=== PATIENT | female | born 1960 | race Caucasian/White ===

== ENCOUNTER → 2017-01-23 | Outpatient (CLI) | payer MEDICARE, MEDICAID ==
[~2017-01-23] MED LIST: ACET500C PO; ALBU8.5H3 IH; ALIS300T PO; ALPR0.257 PO; AMLO5TAB2 PO; AZIL80TA PO; BISA10SU54 PR; CELE200C PO; CLON0.3T47 PO; COMBIVENT INH; CYCL-259 PO; FLUT1DIS5 IH; GADOBUTROL 7.5 MMOL/7.5 ML VIAL ONE; IPRA4AER IH; IPRA4AER INH; LABE200T3 PO; LISI40TA PO; METF500T4 PO; METH500T7 PO; OMEP40CA6 PO; OXYC-229 PO; POLY17PO5 PO; POTA20PA PO; SERT50TA PO; SUCR1TAB PO; VENL150C6 PO
== END | disposition home or self-care (01) ==
LOC: CFH 13:11
PROVIDERS: ATTEND Psychiatry & Neurology Neurology
DX: G93.2 Benign intracranial hypertension (principal); R90.82 White matter disease, unspecified
CPT/HCPCS: 70553; 82565; A9585

== ENCOUNTER 2017-07-23 03:56 | Inpatient (IN) | payer MEDICAID, MEDICARE ==
[~2017-07-23] VITALS: Ht 157.5 cm; Wt 82.7 kg
[~2017-07-23 03:56] MED LIST changes: -ALBU8.5H3 IH; +ALBU8.5H8 IH; +ALPR0.25 PO; -GADOBUTROL 7.5 MMOL/7.5 ML VIAL ONE; +LORA10TA62 PO; +METH750T2 PO; -OXYC-229 PO; +OXYC-307 PO; +POTA20TA89 PO; +PROM12.56 PR; +SIME125T39 PO
[2017-07-23] MEDS ORDERED: SODIUM CHLORIDE FLUSH 10ML SYR IVF ONE (04:30)
[2017-07-23 04:33] LABS: HEMATOCRIT 42.3 % (34.6-47.8); HEMOGLOBIN 14.7 g/dL (11.7-16.4); WHITE BLOOD COUNT 5.1 x10^3/uL (3.4-10)
[2017-07-23 04:37] LABS: BLOOD UREA NITROGEN 11 mg/dL (7-18)
[2017-07-23 04:42] LABS: ASPARTATE AMINO TRANSFERASE 21 U/L (15-37)
[2017-07-23 04:50] LABS: ACETAMINOPHEN < 2 mcg/mL (10-30); IS PT STATUS REG ER OR PRE ER? YES
[2017-07-23] MEDS ORDERED: POTASSIUM CHLORIDE 20 MEQ TAB.ER.PRT ONE (04:52)
[2017-07-23] MEDS ORDERED: SODIUM CHLORIDE 0.9% 1,000ML IVBOLUS ONE (05:00)
[2017-07-23] MEDS ORDERED: POTASSIUM CHLORIDE 20 MEQ TAB.ER.PRT PO ONE (05:00)
[2017-07-23] MEDS ORDERED: ASPIRIN 325 MG TABLET PO ONE (05:00)
[2017-07-23] MEDS ORDERED: ASPIRIN 325 MG TABLET ONE (05:01)
[2017-07-23] MEDS ORDERED: FLUT1AER INH (05:07)
[2017-07-23] MEDS ORDERED: SODIUM CHLORIDE FLUSH 10ML SYR IVF PRN (07:00)
[2017-07-23] MEDS ORDERED: ACETAMINOPHEN 325 MG TABLET PO PRN (08:30)
[2017-07-23] MEDS ORDERED: POLYETHYLENE GLYCOL 17 GM PACKET PO PRN (08:30)
[2017-07-23] MEDS ORDERED: NITROGLYCERIN 0.4 MG BOTTLE (25 TABS) SL PRN (08:30)
[2017-07-23] MEDS ORDERED: ENALAPRILAT 1.25 MG/ML, 2ML IVPush PRN (08:30)
[2017-07-23] MEDS ORDERED: hydrALAzine 20 MG/ML, 1ML IVPush PRN (08:30)
[2017-07-23] MEDS: FLUTICASONE/VILANTEROL 100-25MCG/INH INH SCH (09:00)
[2017-07-23 10:10] LABS: IS PT STATUS REG ER OR PRE ER? YES
[2017-07-23] MEDS ORDERED: OXYcodone/APAP 10/325MG TABLET ONE (10:31)
[2017-07-23] MEDS: OXYcodone/APAP 10/325MG TABLET PO PRN ×3 (10:37→21:19)
[2017-07-23] MEDS ORDERED: ONDANSETRON 2MG/ML, 2ML ONE (10:42)
[2017-07-23] MEDS: ONDANSETRON 2MG/ML, 2ML IVPush PRN ×2 (10:45→21:19)
[2017-07-23] MEDS: METHOCARBAMOL 750 MG TABLET PO SCH ×3 (11:00→21:12)
[2017-07-23 12:00] VITALS: BP 167/93
[2017-07-23] MEDS: AcetaZOLAMIDE ER 500 MG CAPSULE PO SCH (15:10)
[2017-07-23] MEDS: LORATADINE 10 MG TABLET PO SCH (15:11)
[2017-07-23] MEDS: POTASSIUM CHLORIDE 20 MEQ TAB.ER.PRT PO SCH ×2 (15:11→21:12)
[2017-07-23] MEDS: AMLODIPINE 5 MG TABLET PO SCH ×2 (15:11→21:12)
[2017-07-23] MEDS: LABETALOL 200 MG TABLET PO SCH ×2 (15:12→21:12)
[2017-07-23] MEDS: SIMETHICONE 125 MG CHEW TAB PO SCH ×2 (15:13→21:00)
[2017-07-23] MEDS: SENNA/DOCUSATE TABLET PO SCH (15:13)
[2017-07-23] MEDS: PLEASE ENTER HEIGHT AND WEIGHT MC SCH ×2 (15:13→19:45)
[2017-07-23] MEDS: SODIUM CHLORIDE 0.9% 1,000 ML IV SCH (15:15)
[2017-07-23] MEDS: LISINOPRIL 20 MG TABLET PO SCH (15:17)
[2017-07-23] MEDS: ENOXAPARIN 40 MG/0.4 ML SQ SCH (15:17)
[2017-07-23] MEDS: PROMETHAZINE 12.5 MG SUPP PR SCH ×2 (15:18→21:00)
[2017-07-23 15:22] LABS: IS PT STATUS REG ER OR PRE ER? NO
[2017-07-23] MEDS: NICOTINE 7 MG/24 HR PATCH.TD24 TD SCH (16:00)
[2017-07-23] MEDS ORDERED: ALBUTEROL/IPRATROPIUM 2.5MG/0.5MG, 3 ML ONE (16:31)
[2017-07-23] MEDS: ALBUTEROL/IPRATROPIUM 2.5MG/0.5MG, 3 ML NPPB SCH (18:44)
[2017-07-23 20:04] VITALS: BP 159/82
[2017-07-23 21:07] VITALS: BP 153/72
[2017-07-24 00:36] VITALS: BP 110/63
[2017-07-24] MEDS: PLEASE ENTER HEIGHT AND WEIGHT MC SCH (04:00)
[2017-07-24] MEDS: SODIUM CHLORIDE 0.9% 1,000 ML IV SCH (04:40)
[2017-07-24] MEDS: METHOCARBAMOL 750 MG TABLET PO SCH ×4 (05:32→21:33)
[2017-07-24] MEDS: ONDANSETRON 2MG/ML, 2ML IVPush PRN (05:32)
[2017-07-24] MEDS: PROMETHAZINE 12.5 MG SUPP PR SCH (05:32)
[2017-07-24] MEDS: ASPIRIN 325 MG TABLET EC PO SCH (05:32)
[2017-07-24] MEDS: OXYcodone/APAP 10/325MG TABLET PO PRN ×4 (05:32→23:54)
[2017-07-24 05:45] LABS: HEMATOCRIT 37.6 % (34.6-47.8); HEMOGLOBIN 13.1 g/dL (11.7-16.4); WHITE BLOOD COUNT 4.2 x10^3/uL (3.4-10)
[2017-07-24 05:58] LABS: BLOOD UREA NITROGEN 15 mg/dL (7-18)
[2017-07-24 06:10] LABS: ASPARTATE AMINO TRANSFERASE 17 U/L (15-37)
[2017-07-24 07:44] VITALS: BP 117/66
[2017-07-24] MEDS ORDERED: PROMETHAZINE 12.5 MG SUPP PR PRN (08:00)
[2017-07-24] MEDS: LISINOPRIL 20 MG TABLET PO SCH (10:44)
[2017-07-24] MEDS: AcetaZOLAMIDE ER 500 MG CAPSULE PO SCH (10:44)
[2017-07-24] MEDS: LORATADINE 10 MG TABLET PO SCH (10:45)
[2017-07-24] MEDS: LABETALOL 200 MG TABLET PO SCH ×2 (10:45→21:33)
[2017-07-24] MEDS: SIMETHICONE 125 MG CHEW TAB PO SCH ×2 (10:45→21:33)
[2017-07-24] MEDS: SENNA/DOCUSATE TABLET PO SCH (10:45)
[2017-07-24] MEDS: AMLODIPINE 5 MG TABLET PO SCH ×2 (10:45→21:33)
[2017-07-24] MEDS: FLUTICASONE/VILANTEROL 100-25MCG/INH INH SCH (11:36)
[2017-07-24 13:53] VITALS: BP 109/70
[2017-07-24] MEDS: NICOTINE 7 MG/24 HR PATCH.TD24 TD SCH (16:00)
[2017-07-24] MEDS: ENOXAPARIN 40 MG/0.4 ML SQ SCH (17:28)
[2017-07-24] MEDS: POTASSIUM CHLORIDE 20 MEQ TAB.ER.PRT PO SCH (17:28)
[2017-07-24] MEDS: ALBUTEROL/IPRATROPIUM 2.5MG/0.5MG, 3 ML NPPB SCH (20:00)
[2017-07-24 20:09] VITALS: BP 107/69
[2017-07-24] MEDS ORDERED: ATORVASTATIN 40 MG TABLET PO SCH (21:00)
[2017-07-24 21:24] VITALS: BP 137/90
[2017-07-24 22:39] VITALS: BP 123/75
[2017-07-25 01:45] VITALS: BP 121/72
[2017-07-25] MEDS: ONDANSETRON 2MG/ML, 2ML IVPush PRN (02:04)
[2017-07-25] MEDS: ASPIRIN 325 MG TABLET EC PO SCH (05:10)
[2017-07-25] MEDS: METHOCARBAMOL 750 MG TABLET PO SCH ×2 (05:10→11:22)
[2017-07-25] MEDS ORDERED: ATOR40TA78 PO (06:59)
[2017-07-25] MEDS ORDERED: ASPI-650 PO (06:59)
[2017-07-25] MEDS: ALBUTEROL/IPRATROPIUM 2.5MG/0.5MG, 3 ML NPPB SCH ×2 (07:20→11:32)
[2017-07-25] MEDS ORDERED: REGADENOSON 0.4 MG/5 ML SYRINGE ONE (08:23)
[2017-07-25] MEDS ORDERED: KETOROLAC 30 MG/1 ML IVPush ONE (09:00)
[2017-07-25] MEDS ORDERED: HYDROmorphone 1 MG/ML, 1ML IVPush ONE (09:00)
[2017-07-25 09:15] VITALS: BP 158/85
[2017-07-25] MEDS ORDERED: LABETALOL 100 MG TABLET PO SCH ×2 (11:00→21:00)
[2017-07-25] MEDS: FLUTICASONE/VILANTEROL 100-25MCG/INH INH SCH (11:16)
[2017-07-25] MEDS: AcetaZOLAMIDE ER 500 MG CAPSULE PO SCH (11:17)
[2017-07-25] MEDS: SIMETHICONE 125 MG CHEW TAB PO SCH (11:18)
[2017-07-25] MEDS: OXYcodone/APAP 10/325MG TABLET PO PRN (11:22)
[2017-07-25] MEDS: AMLODIPINE 5 MG TABLET PO SCH (11:22)
[2017-07-25] MEDS: LORATADINE 10 MG TABLET PO SCH (11:22)
[2017-07-25] MEDS: LISINOPRIL 20 MG TABLET PO SCH (11:23)
[2017-07-25] MEDS: POTASSIUM CHLORIDE 20 MEQ TAB.ER.PRT PO SCH (11:23)
[2017-07-25] MEDS: SENNA/DOCUSATE TABLET PO SCH (11:28)
[2017-07-25 14:14] VITALS: BP 151/82
== END 2017-07-25 15:31 | disposition home or self-care (01) | DRG 69 ==
LOC: ED 05:22 → EDIP 06:48 → 4EST 11:51 → DCLOUNGE 07-25 15:16
PROVIDERS: ADMIT Internal Medicine; ATTEND Hospitalist
PROC: HZ34ZZZ Individual Counseling for Substance Abuse Treatment, Interpersonal (ICD-10-PCS; principal; 2017-07-23)
DX: G45.9 Transient cerebral ischemic attack, unspecified (principal); I11.0 Hypertensive heart disease with heart failure; I50.32 Chronic diastolic (congestive) heart failure; E44.1 Mild protein-calorie malnutrition; I16.1 Hypertensive emergency; E11.9 Type 2 diabetes mellitus without complications; E66.9 Obesity, unspecified; E78.5 Hyperlipidemia, unspecified; E87.6 Hypokalemia; F10.120 Alcohol abuse with intoxication, uncomplicated; F12.90 Cannabis use, unspecified, uncomplicated; F17.210 Nicotine dependence, cigarettes, uncomplicated; F41.9 Anxiety disorder, unspecified; G47.30 Sleep apnea, unspecified; G89.29 Other chronic pain; M06.9 Rheumatoid arthritis, unspecified; Z68.33 Body mass index [BMI] 33.0-33.9, adult; I25.10 Atherosclerotic heart disease of native coronary artery without angina pectoris; J44.9 Chronic obstructive pulmonary disease, unspecified; K21.9 Gastro-esophageal reflux disease without esophagitis; M48.061 Spinal stenosis, lumbar region without neurogenic claudication; M51.36 Other intervertebral disc degeneration, lumbar region; Z79.4 Long term (current) use of insulin; Z79.82 Long term (current) use of aspirin; Z86.73 Personal history of transient ischemic attack (TIA), and cerebral infarction without residual deficits; Z98.84 Bariatric surgery status; Z88.8 Allergy status to other drugs, medicaments and biological substances; Z91.041 Radiographic dye allergy status; Z71.6 Tobacco abuse counseling; Z71.41 Alcohol abuse counseling and surveillance of alcoholic
CPT/HCPCS: 36415; 70450; 70544; 70547; 70551; 71010; 72148; 78452; 80053; 80061; 80307; 80329; 82962; 84443; 84484; 85025; 85610; 85730; 93005; 93017; 93306; 94640; 96360; 96361; J1170; J1650; J1885; J2405; J2785; J7620; 92523-GN; A9502; C9898; G0479; G0480; J7030

== ENCOUNTER 2017-09-13 03:43 | Inpatient (IN) | payer MEDICARE, MEDICAID ==
[~2017-09-13] VITALS: Ht 157.5 cm; Wt 89.6 kg
[~2017-09-13 03:43] MED LIST changes: +ASPI-650 PO; +ATOR40TA78 PO; +FLUT1AER INH
[2017-09-13 04:24] LABS: BASOPHILS # (AUTO) 0.04 x10^3/uL (0-0.1); BASOPHILS % (AUTO) 1 % (0-1); EOSINOPHILS # (AUTO) 0.22 x10^3/uL (0-0.4); EOSINOPHILS % (AUTO) 4 % (1-7); LYMPHOCYTES # (AUTO) 1.55 x10^3/uL (1-3.4); LYMPHOCYTES % (AUTO) 31 % (22-44); MD NO; MEAN CORPUSCULAR HEMOGLOBIN 30.6 pg (27.0-34.8); MEAN CORPUSCULAR HGB CONC 33.8 g/dL (32.4-35.8); MEAN CORPUSCULAR VOLUME 90.4 fL (80-100); MONOCYTES # (AUTO) 0.53 x10^3/uL (0.2-0.8); MONOCYTES % (AUTO) 11 % (2-9); NEUTROPHILS # (AUTO) 2.62 x10^3/uL (1.8-6.8); NEUTROPHILS % (AUTO) 53 % (42-75); PLATELET COUNT 182 x10^3/uL (130-400); RED BLOOD COUNT 4.31 x10^6/uL (3.82-5.3); RED CELL DISTRIBUTION WIDTH 14.1 % (9.6-15.2)
[2017-09-13 04:27] LABS: ALBUMIN 3.5 g/dL (3.4-5.0); ANION GAP 10 mmol/L (5-15); CALCIUM 7.8 mg/dL (8.5-10.1); CHLORIDE 111 mmol/L (98-107); CREATININE 0.72 mg/dL (0.55-1.02)
[2017-09-13 04:45] LABS: TROPONIN I 0.124 ng/mL (0.000-0.045)
[2017-09-13] MEDS ORDERED: SODIUM CHLORIDE 0.9% 1,000 ML IV ONE (04:46)
[2017-09-13] MEDS ORDERED: MORPHINE SULFATE 4 MG/ML, 1ML IVPush PRN (05:00)
[2017-09-13] MEDS ORDERED: ONDANSETRON 2MG/ML, 2ML IVPush ONE (05:00)
[2017-09-13] MEDS ORDERED: ACETAMINOPHEN 325 MG TABLET PO PRN ×2 (05:00→14:30)
[2017-09-13] MEDS ORDERED: ASPIRIN 81 MG TABLET CHEW PO ONE (05:00)
[2017-09-13] MEDS ORDERED: SODIUM CHLORIDE FLUSH 10ML SYR IVF ONE (05:00)
[2017-09-13] MEDS ORDERED: DOCUSATE 100 MG CAPSULE PO PRN (05:00)
[2017-09-13] MEDS ORDERED: POTASSIUM CHLORIDE 20 MEQ TAB.ER.PRT PO ONE ×2 (05:00→12:00)
[2017-09-13] MEDS ORDERED: ONDANSETRON 2MG/ML, 2ML IVPush PRN ×2 (05:00→14:30)
[2017-09-13] MEDS ORDERED: TEMAZEPAM 15 MG CAPSULE PO PRN (05:00)
[2017-09-13] MEDS ORDERED: THIAMINE 100MG TABLET PO ONE (05:00)
[2017-09-13] MEDS ORDERED: THIAMINE 100MG TABLET ONE (05:30)
[2017-09-13] MEDS ORDERED: METHOCARBAMOL 750 MG TABLET ONE (05:30)
[2017-09-13] MEDS ORDERED: POTASSIUM CHLORIDE 20 MEQ TAB.ER.PRT ONE (05:31)
[2017-09-13] MEDS ORDERED: ASPIRIN 81 MG TABLET CHEW ONE (05:31)
[2017-09-13] MEDS ORDERED: ENOXAPARIN 40 MG/0.4 ML ONE (05:31)
[2017-09-13] MEDS ORDERED: ONDANSETRON 2MG/ML, 2ML ONE (05:31)
[2017-09-13] MEDS: ENOXAPARIN 40 MG/0.4 ML SQ SCH (05:40)
[2017-09-13] MEDS: METHOCARBAMOL 750 MG TABLET PO SCH ×4 (05:40→21:34)
[2017-09-13] MEDS: ASPIRIN 325 MG TABLET EC PO SCH (05:50)
[2017-09-13] MEDS ORDERED: NITROGLYCERIN SINGLE TAB 0.4 MG SL ONE ×2 (06:59→09:00)
[2017-09-13] MEDS: NITROGLYCERIN SINGLE TAB 0.4 MG SL PRN ×2 (07:00→09:09)
[2017-09-13 08:44] LABS: TROPONIN I 0.139 ng/mL (0.000-0.045)
[2017-09-13] MEDS ORDERED: LABETALOL 200 MG TABLET PO SCH (09:00)
[2017-09-13] MEDS: LISINOPRIL 20 MG TABLET PO SCH (09:11)
[2017-09-13] MEDS: AMLODIPINE 5 MG TABLET PO SCH ×2 (09:11→21:33)
[2017-09-13] MEDS: SIMETHICONE 125 MG CHEW TAB PO SCH ×2 (09:12→23:27)
[2017-09-13] MEDS: POTASSIUM CHLORIDE 20 MEQ TAB.ER.PRT PO SCH ×2 (09:12→21:34)
[2017-09-13] MEDS: AcetaZOLAMIDE ER 500 MG CAPSULE PO SCH (09:13)
[2017-09-13] MEDS: SODIUM CHLORIDE 0.9% 1,000 ML IV SCH ×2 (09:14→21:39)
[2017-09-13 11:36] VITALS: BP 147/85
[2017-09-13] MEDS ORDERED: FLUT1BLS INH (12:19)
[2017-09-13] MEDS ORDERED: IPRA4AER INH (12:19)
[2017-09-13] MEDS ORDERED: LABE200T3 PO (12:19)
[2017-09-13] MEDS ORDERED: ALBU5SOL6 NEB (12:19)
[2017-09-13] MEDS ORDERED: LISI40TA PO (12:19)
[2017-09-13] MEDS ORDERED: AMLO10TA2 PO (12:19)
[2017-09-13] MEDS ORDERED: ALBU90AE INH (12:19)
[2017-09-13 13:09] VITALS: BP 136/83
[2017-09-13] MEDS ORDERED: GABAPENTIN 100 MG CAPSULE ONE (14:27)
[2017-09-13] MEDS ORDERED: OXYcodone IR 5MG TABLET ONE (14:27)
[2017-09-13] MEDS: OXYcodone IR 5MG TABLET PO PRN ×3 (14:29→23:27)
[2017-09-13] MEDS: GABAPENTIN 100 MG CAPSULE PO SCH ×2 (14:29→21:33)
[2017-09-13] MEDS ORDERED: hydrALAzine 20 MG/ML, 1ML IVPush PRN (14:30)
[2017-09-13] MEDS ORDERED: ENALAPRILAT 1.25 MG/ML, 2ML IVPush PRN (14:30)
[2017-09-13] MEDS ORDERED: ALBUTEROL/IPRATROPIUM 2.5MG/0.5MG, 3 ML NPPB SCH ×2 (14:30→16:00)
[2017-09-13] MEDS ORDERED: BISACODYL 10 MG SUPP PR PRN (14:30)
[2017-09-13] MEDS ORDERED: morphine SULFATE 10 MG/ML, 1ML IVPush PRN (14:30)
[2017-09-13] MEDS ORDERED: POLYETHYLENE GLYCOL 17 GM PACKET PO PRN (14:30)
[2017-09-13 15:43] VITALS: BP 130/85
[2017-09-13] MEDS ORDERED: ALBUTEROL SULFATE 2.5 MG/3 ML NPPB PRN (17:00)
[2017-09-13] MEDS: FLUTICASONE/VILANTEROL 200-25MCG/INH INH SCH (18:38)
[2017-09-13 20:01] VITALS: BP 133/89
[2017-09-13] MEDS: ATORVASTATIN 40 MG TABLET PO SCH (21:33)
[2017-09-13] MEDS ORDERED: ALBUTEROL/IPRATROPIUM 2.5MG/0.5MG, 3 ML ONE (21:55)
[2017-09-13] MEDS: ALBUTEROL/IPRATROPIUM 2.5MG/0.5MG, 3 ML NPPB SCH (22:01)
[2017-09-14 01:23] VITALS: BP 128/73
[2017-09-14] MEDS: OXYcodone IR 5MG TABLET PO PRN ×2 (03:35→10:03)
[2017-09-14] MEDS: SODIUM CHLORIDE 0.9% 1,000 ML IV SCH (03:36)
[2017-09-14] MEDS: ENOXAPARIN 40 MG/0.4 ML SQ SCH (05:41)
[2017-09-14] MEDS: GABAPENTIN 100 MG CAPSULE PO SCH (05:41)
[2017-09-14] MEDS: METHOCARBAMOL 750 MG TABLET PO SCH ×4 (05:41→20:39)
[2017-09-14] MEDS: ASPIRIN 325 MG TABLET EC PO SCH (05:41)
[2017-09-14 05:43] LABS: CHLORIDE 111 mmol/L (98-107)
[2017-09-14 05:47] LABS: CALCIUM 7.9 mg/dL (8.5-10.1); CREATININE 1.01 mg/dL (0.55-1.02)
[2017-09-14 06:26] LABS: ANION GAP 6 mmol/L (5-15); MEAN CORPUSCULAR HEMOGLOBIN 30.8 pg (27.0-34.8); MEAN CORPUSCULAR HGB CONC 33.9 g/dL (32.4-35.8); MEAN CORPUSCULAR VOLUME 90.9 fL (80-100); PLATELET COUNT 146 x10^3/uL (130-400)
[2017-09-14 06:28] LABS: BASOPHILS # (AUTO) 0.02 x10^3/uL (0-0.1); BASOPHILS % (AUTO) 0 % (0-1); EOSINOPHILS # (AUTO) 0.22 x10^3/uL (0-0.4); EOSINOPHILS % (AUTO) 4 % (1-7); LYMPHOCYTES # (AUTO) 1.29 x10^3/uL (1-3.4); LYMPHOCYTES % (AUTO) 25 % (22-44); MD SCAN; MONOCYTES # (AUTO) 0.49 x10^3/uL (0.2-0.8); MONOCYTES % (AUTO) 9 % (2-9); NEUTROPHILS # (AUTO) 3.21 x10^3/uL (1.8-6.8); NEUTROPHILS % (AUTO) 61 % (42-75)
[2017-09-14 07:25] VITALS: BP 122/78
[2017-09-14] MEDS ORDERED: MAGNESIUM SULFATE PMX 2GM/50ML 50 ML IV ONE (07:30)
[2017-09-14] MEDS: SIMETHICONE 125 MG CHEW TAB PO SCH ×2 (09:00→20:39)
[2017-09-14] MEDS ORDERED: LISINOPRIL 20 MG TABLET PO SCH (09:00)
[2017-09-14] MEDS: GABAPENTIN 300 MG CAPSULE PO SCH ×3 (10:04→20:39)
[2017-09-14] MEDS: LABETALOL 200 MG TABLET PO SCH (10:04)
[2017-09-14] MEDS: LISINOPRIL 20 MG TABLET PO SCH (10:07)
[2017-09-14] MEDS: AcetaZOLAMIDE ER 500 MG CAPSULE PO SCH (10:08)
[2017-09-14] MEDS: PANTOPRAZOLE 40 MG IV IVPush SCH ×2 (10:08→20:39)
[2017-09-14] MEDS: POTASSIUM CHLORIDE 20 MEQ TAB.ER.PRT PO SCH ×2 (10:09→20:40)
[2017-09-14] MEDS: AMLODIPINE 5 MG TABLET PO SCH (10:09)
[2017-09-14] MEDS: FLUTICASONE/VILANTEROL 200-25MCG/INH INH SCH (10:10)
[2017-09-14] MEDS: SENNA/DOCUSATE TABLET PO SCH (10:12)
[2017-09-14 12:42] LABS: TROPONIN I 0.117 ng/mL (0.000-0.045)
[2017-09-14] MEDS ORDERED: PROMETHAZINE 25 MG/ML, 1ML ONE (13:30)
[2017-09-14] MEDS ORDERED: PROMETHAZINE 25 MG/ML, 1ML IM PRN (13:30)
[2017-09-14 14:30] VITALS: BP 111/71
[2017-09-14 16:59] LABS: TROPONIN I 0.109 ng/mL (0.000-0.045)
[2017-09-14 19:30] VITALS: BP 140/67
[2017-09-14] MEDS: ATORVASTATIN 40 MG TABLET PO SCH (20:39)
[2017-09-15 00:06] LABS: TROPONIN I 0.105 ng/mL (0.000-0.045)
[2017-09-15] MEDS: OXYcodone IR 5MG TABLET PO PRN ×4 (00:56→22:39)
[2017-09-15 02:00] VITALS: BP 136/81
[2017-09-15] MEDS: METHOCARBAMOL 750 MG TABLET PO SCH ×4 (05:56→20:47)
[2017-09-15] MEDS: ENOXAPARIN 40 MG/0.4 ML SQ SCH (05:56)
[2017-09-15] MEDS: ASPIRIN 325 MG TABLET EC PO SCH (05:56)
[2017-09-15 06:30] VITALS: BP 139/75
[2017-09-15] MEDS: SENNA/DOCUSATE TABLET PO SCH (08:12)
[2017-09-15] MEDS: LISINOPRIL 20 MG TABLET PO SCH (08:12)
[2017-09-15] MEDS: GABAPENTIN 300 MG CAPSULE PO SCH ×3 (08:13→20:47)
[2017-09-15] MEDS: POTASSIUM CHLORIDE 20 MEQ TAB.ER.PRT PO SCH ×2 (08:13→20:49)
[2017-09-15] MEDS: AMLODIPINE 5 MG TABLET PO SCH (08:13)
[2017-09-15] MEDS: SIMETHICONE 125 MG CHEW TAB PO SCH (08:13)
[2017-09-15] MEDS: FLUTICASONE/VILANTEROL 200-25MCG/INH INH SCH (08:14)
[2017-09-15] MEDS: PANTOPRAZOLE 40 MG IV IVPush SCH ×2 (08:14→20:47)
[2017-09-15] MEDS: AcetaZOLAMIDE ER 500 MG CAPSULE PO SCH (08:14)
[2017-09-15] MEDS: LABETALOL 200 MG TABLET PO SCH ×2 (08:14→20:45)
[2017-09-15] MEDS: ALBUTEROL/IPRATROPIUM 2.5MG/0.5MG, 3 ML NPPB SCH (09:00)
[2017-09-15] MEDS ORDERED: MAGNESIUM SULFATE PMX 2GM/50ML 50 ML IV ONE (10:30)
[2017-09-15] MEDS ORDERED: POTASSIUM CHLORIDE 20 MEQ TAB.ER.PRT PO ONE (10:30)
[2017-09-15 11:23] LABS: ALANINE AMINOTRANSFERASE 17 U/L (12-78); ALBUMIN 3.2 g/dL (3.4-5.0); ANION GAP 4 mmol/L (5-15); CALCIUM 7.6 mg/dL (8.5-10.1); CHLORIDE 113 mmol/L (98-107)
[2017-09-15 11:26] LABS: ALKALINE PHOSPHATASE 87 U/L (45-117); BILIRUBIN,TOTAL 1.1 mg/dL (0.2-1.0); CREATININE 1.33 mg/dL (0.55-1.02); TOTAL PROTEIN 6.2 g/dL (6.4-8.2)
[2017-09-15 13:18] VITALS: BP 119/71
[2017-09-15 16:34] VITALS: BP 144/78
[2017-09-15 18:01] VITALS: BP 125/76
[2017-09-15 18:44] VITALS: BP 125/69
[2017-09-15] MEDS ORDERED: POTASSIUM CHLORIDE 10 MEQ TABLET.ER ONE (20:31)
[2017-09-15] MEDS: ATORVASTATIN 40 MG TABLET PO SCH (20:46)
[2017-09-16 01:50] VITALS: BP 156/86
[2017-09-16] MEDS: OXYcodone IR 5MG TABLET PO PRN ×3 (02:59→16:25)
[2017-09-16] MEDS: METHOCARBAMOL 750 MG TABLET PO SCH ×3 (05:06→16:24)
[2017-09-16] MEDS: ASPIRIN 325 MG TABLET EC PO SCH (05:06)
[2017-09-16] MEDS: ENOXAPARIN 40 MG/0.4 ML SQ SCH (05:06)
[2017-09-16 05:53] LABS: ALANINE AMINOTRANSFERASE 16 U/L (12-78); ALBUMIN 3.3 g/dL (3.4-5.0); ANION GAP 6 mmol/L (5-15); CHLORIDE 114 mmol/L (98-107); CREATININE 1.02 mg/dL (0.55-1.02)
[2017-09-16 05:55] LABS: ALKALINE PHOSPHATASE 91 U/L (45-117); BILIRUBIN,TOTAL 0.9 mg/dL (0.2-1.0); TOTAL PROTEIN 6.4 g/dL (6.4-8.2)
[2017-09-16 06:11] LABS: BASOPHILS # (AUTO) 0.02 x10^3/uL (0-0.1); BASOPHILS % (AUTO) 0 % (0-1); EOSINOPHILS # (AUTO) 0.15 x10^3/uL (0-0.4); EOSINOPHILS % (AUTO) 3 % (1-7); LYMPHOCYTES # (AUTO) 0.73 x10^3/uL (1-3.4); LYMPHOCYTES % (AUTO) 15 % (22-44); MD SCAN; MEAN CORPUSCULAR HEMOGLOBIN 30.8 pg (27.0-34.8); MEAN CORPUSCULAR VOLUME 90.8 fL (80-100); MEAN PLATELET VOLUME 11.1 fL (7.4-10.4); MONOCYTES # (AUTO) 0.34 x10^3/uL (0.2-0.8); MONOCYTES % (AUTO) 7 % (2-9); NEUTROPHILS # (AUTO) 3.84 x10^3/uL (1.8-6.8); NEUTROPHILS % (AUTO) 76 % (42-75); PLATELET COUNT 162 x10^3/uL (130-400); RED BLOOD COUNT 3.71 x10^6/uL (3.82-5.3); RED CELL DISTRIBUTION WIDTH 14.7 % (9.6-15.2)
[2017-09-16] MEDS: ALBUTEROL/IPRATROPIUM 2.5MG/0.5MG, 3 ML NPPB SCH (06:40)
[2017-09-16 07:11] VITALS: BP 136/80
[2017-09-16] MEDS: GABAPENTIN 300 MG CAPSULE PO SCH ×2 (08:40→16:24)
[2017-09-16] MEDS: AcetaZOLAMIDE ER 500 MG CAPSULE PO SCH (08:40)
[2017-09-16] MEDS: AMLODIPINE 5 MG TABLET PO SCH (08:40)
[2017-09-16] MEDS: PANTOPRAZOLE 40 MG IV IVPush SCH (08:40)
[2017-09-16] MEDS: LABETALOL 200 MG TABLET PO SCH (08:41)
[2017-09-16] MEDS: POTASSIUM CHLORIDE 20 MEQ TAB.ER.PRT PO SCH (08:41)
[2017-09-16] MEDS: LISINOPRIL 20 MG TABLET PO SCH (08:45)
[2017-09-16] MEDS: FLUTICASONE/VILANTEROL 200-25MCG/INH INH SCH (08:45)
[2017-09-16] MEDS: SENNA/DOCUSATE TABLET PO SCH (08:47)
[2017-09-16] MEDS ORDERED: LORazepam 2 MG/ML, 1ML IVPush ONE (11:00)
[2017-09-16] MEDS ORDERED: LABE200T3 PO (15:58)
[2017-09-16] MEDS ORDERED: GABA300C10 PO (15:58)
[2017-09-16] MEDS ORDERED: OMEP-110 PO (15:58)
[2017-09-16] MEDS ORDERED: SENN1TAB7 PO (15:58)
[2017-09-16] MEDS ORDERED: ALBU2.5V NPPB (15:58)
[2017-09-16] MEDS ORDERED: IPRA4AER INH (16:07)
== END 2017-09-16 18:01 | disposition home or self-care (01) | DRG 392 ==
LOC: ED 03:53 → EDIP 04:48 → SUATTDRO 04:54 → 5SO 11:31 → 4EST 09-15 17:41 → 5SO 09-15 17:48 → 4EST 09-15 17:55
PROVIDERS: ADMIT Internal Medicine; ATTEND Internal Medicine
DX: K29.70 Gastritis, unspecified, without bleeding (principal); N17.9 Acute kidney failure, unspecified; I11.0 Hypertensive heart disease with heart failure; I50.9 Heart failure, unspecified; E11.9 Type 2 diabetes mellitus without complications; F10.10 Alcohol abuse, uncomplicated; F32.9 Major depressive disorder, single episode, unspecified; G89.29 Other chronic pain; M19.90 Unspecified osteoarthritis, unspecified site; M48.061 Spinal stenosis, lumbar region without neurogenic claudication; E87.6 Hypokalemia; J44.9 Chronic obstructive pulmonary disease, unspecified; Z79.82 Long term (current) use of aspirin; Z86.73 Personal history of transient ischemic attack (TIA), and cerebral infarction without residual deficits; Z87.891 Personal history of nicotine dependence; Z88.8 Allergy status to other drugs, medicaments and biological substances; Z91.041 Radiographic dye allergy status; Z95.5 Presence of coronary angioplasty implant and graft; Z98.2 Presence of cerebrospinal fluid drainage device; I25.2 Old myocardial infarction; M06.9 Rheumatoid arthritis, unspecified; G93.2 Benign intracranial hypertension
CPT/HCPCS: 36415; 71045; 71250; 74181; 76700; 78582; 80048; 80053; 80307; 82040; 83735; 84100; 84484; 85025; 93005; 94640; 96374; J1650; J2405; J2550; J7620; A9540; A9558; C9113; C9898; J2060; J3475; J7030

== ENCOUNTER → 2017-10-29 | Outpatient (CLI) | payer MEDICARE, MEDICAID ==
[~2017-10-29] MED LIST changes: +ALBU2.5V NPPB; +ALBU5SOL6 NEB; +ALBU90AE INH; +AMLO10TA2 PO; +ATOR40TA PO; +ESOM20TA PO; +FLUT1BLS INH; +GABA300C10 PO; +LORA10TA75 PO; +METH750T87 PO; +OMEP-110 PO; +SENN1TAB7 PO; +SIMETHICONE PO; +TIOT18CA INH; +VENL150T PO
[2017-10-29 11:23] LABS: CHOL/HDL RATIO 1.7; LDL/HDL RATIO 0.5 (0.5-3.0)
[2017-10-29 12:21] LABS: HEMOGLOBIN A1C 6.2 % (4.2-6.3)
== END ==
LOC: LAB 10:55
PROVIDERS: ATTEND Genetic Counselor, MS
DX: E11.9 Type 2 diabetes mellitus without complications (principal); E78.5 Hyperlipidemia, unspecified
CPT/HCPCS: 36415; 80061; 83036

== ENCOUNTER → 2017-10-29 | Outpatient (CLI) | payer MEDICARE, MEDICAID ==
[2017-10-29 11:06] LABS: BASOPHILS # (AUTO) 0.03 x10^3/uL (0-0.1); BASOPHILS % (AUTO) 1 % (0-1); EOSINOPHILS # (AUTO) 0.19 x10^3/uL (0-0.4); EOSINOPHILS % (AUTO) 5 % (1-7); LYMPHOCYTES # (AUTO) 1.04 x10^3/uL (1-3.4); LYMPHOCYTES % (AUTO) 29 % (22-44); MD NO; MEAN CORPUSCULAR HEMOGLOBIN 30.7 pg (27.0-34.8); MEAN CORPUSCULAR HGB CONC 34.2 g/dL (32.4-35.8); MEAN CORPUSCULAR VOLUME 89.8 fL (80-100); MEAN PLATELET VOLUME 10.3 fL (7.4-10.4); MONOCYTES # (AUTO) 0.41 x10^3/uL (0.2-0.8); MONOCYTES % (AUTO) 12 % (2-9); NEUTROPHILS % (AUTO) 53 % (42-75); PLATELET COUNT 186 x10^3/uL (130-400); RED BLOOD COUNT 4.42 x10^6/uL (3.82-5.3); RED CELL DISTRIBUTION WIDTH 14.3 % (9.6-15.2)
[2017-10-29 11:16] LABS: INTERNATIONAL NORMALIZED RATIO 1.01 (0.93-1.1); PROTHROMBIN TIME 10.5 Seconds (9.6-11.5)
[2017-10-29 11:18] LABS: ALANINE AMINOTRANSFERASE 22 U/L (12-78); ALBUMIN 3.9 g/dL (3.4-5.0); ANION GAP 8 mmol/L (5-15); CALCIUM 8.2 mg/dL (8.5-10.1); CHLORIDE 106 mmol/L (98-107); CREATININE 0.97 mg/dL (0.55-1.02)
[2017-10-29 11:21] LABS: ALKALINE PHOSPHATASE 87 U/L (45-117); BILIRUBIN,TOTAL 1.6 mg/dL (0.2-1.0)
== END | disposition home or self-care (01) ==
LOC: STAR 09:36
PROVIDERS: ATTEND Neurological Surgery
DX: Z01.818 Encounter for other preprocedural examination (principal); M48.062 Spinal stenosis, lumbar region with neurogenic claudication; I21.9 Acute myocardial infarction, unspecified
CPT/HCPCS: 36415; 80053; 85025; 85610; 85730; 93005

== ENCOUNTER 2017-11-10 23:17 | Inpatient (IN) | payer MEDICARE, MEDICAID ==
[~2017-11-10] VITALS: Ht 157.5 cm; Wt 92.0 kg
[~2017-11-10 23:17] MED LIST changes: +OXYC-302 PO
[2017-11-10] MEDS ORDERED: METOCLOPRAMIDE 5 MG/ML, 2ML ONE (23:47)
[2017-11-10] MEDS ORDERED: DIPHENHYDRAMINE 50 MG/ML, 1ML ONE (23:47)
[2017-11-10] MEDS ORDERED: PROCHLORPERAZINE 5 MG/ML, 2ML ONE (23:47)
[2017-11-10] MEDS ORDERED: SODIUM CHLORIDE 0.9% 1,000 ML IV ONE (23:53)
[2017-11-11] VITALS (7 sets, daily range): BP systolic 113–189; BP diastolic 67–111
[2017-11-11] MEDS ORDERED: PROCHLORPERAZINE 5 MG/ML, 2ML IVPush ONE
[2017-11-11] MEDS ORDERED: DIPHENHYDRAMINE 50 MG/ML, 1ML IVPush ONE
[2017-11-11] MEDS ORDERED: METOCLOPRAMIDE 5 MG/ML, 2ML IVPush ONE
[2017-11-11] MEDS ORDERED: SODIUM CHLORIDE FLUSH 10ML SYR IVF ONE ×2
[2017-11-11 00:18] LABS: BASOPHILS # (AUTO) 0.02 x10^3/uL (0-0.1); BASOPHILS % (AUTO) 0 % (0-1); EOSINOPHILS # (AUTO) 0.11 x10^3/uL (0-0.4); EOSINOPHILS % (AUTO) 2 % (1-7); LYMPHOCYTES # (AUTO) 0.46 x10^3/uL (1-3.4); LYMPHOCYTES % (AUTO) 6 % (22-44); MD NO; MEAN CORPUSCULAR HEMOGLOBIN 30.8 pg (27.0-34.8); MEAN CORPUSCULAR HGB CONC 33.9 g/dL (32.4-35.8); MEAN CORPUSCULAR VOLUME 90.8 fL (80-100); MONOCYTES # (AUTO) 0.25 x10^3/uL (0.2-0.8); MONOCYTES % (AUTO) 3 % (2-9); NEUTROPHILS # (AUTO) 6.77 x10^3/uL (1.8-6.8); NEUTROPHILS % (AUTO) 89 % (42-75); PLATELET COUNT 184 x10^3/uL (130-400); RED BLOOD COUNT 3.25 x10^6/uL (3.82-5.3); RED CELL DISTRIBUTION WIDTH 13.7 % (9.6-15.2)
[2017-11-11 00:24] LABS: ALBUMIN 3.4 g/dL (3.4-5.0); ANION GAP 9 mmol/L (5-15); CALCIUM 8.7 mg/dL (8.5-10.1); CHLORIDE 105 mmol/L (98-107); CREATININE 0.74 mg/dL (0.55-1.02)
[2017-11-11] MEDS ORDERED: AZITHROMYCIN 500 MG in SODIUM CHLORIDE 0.9% 250 ML IVPB ONE (01:30)
[2017-11-11] MEDS ORDERED: morphine SULFATE 10 MG/ML, 1ML IVPush PRN (01:30)
[2017-11-11] MEDS ORDERED: ENALAPRILAT 1.25 MG/ML, 2ML IVPush PRN (01:30)
[2017-11-11] MEDS ORDERED: CEFTRIAXONE PMX 1GM/50ML 50 ML IVPB ONE (01:30)
[2017-11-11] MEDS ORDERED: BISACODYL 10 MG SUPP PR PRN (01:30)
[2017-11-11] MEDS ORDERED: SODIUM CHLORIDE FLUSH 10ML SYR IVF PRN (01:30)
[2017-11-11 02:00] LABS: FREE T4 (FREE THYROXINE) 1.21 ng/dL (0.76-1.46); THYROID STIMULATING HORMONE 1.13 mIU/L (0.358-3.740)
[2017-11-11] MEDS ORDERED: POTASSIUM CHLORIDE 20 MEQ TAB.ER.PRT PO ONE (02:00)
[2017-11-11] MEDS ORDERED: TEMPLATE NON-FORMULARY MED. (Albuterol Sulfate (Proair Respiclick) 2 PUFF(S)) INH PRN (02:00)
[2017-11-11] MEDS ORDERED: PROMETHAZINE 12.5 MG SUPP PR PRN (02:00)
[2017-11-11] MEDS ORDERED: OXYcodone/APAP 5/325MG TABLET PO PRN (02:00)
[2017-11-11] MEDS ORDERED: CEFTRIAXONE PMX 1GM/50ML 50 ML ONE (02:05)
[2017-11-11] MEDS: SODIUM CHLORIDE 0.9% 1,000 ML IV SCH ×3 (02:09→22:28)
[2017-11-11] MEDS: CEFTRIAXONE PMX 2GM/50ML 50 ML IV SCH (02:10)
[2017-11-11] MEDS: GABAPENTIN 300 MG CAPSULE PO SCH ×4 (02:48→20:31)
[2017-11-11] MEDS: METHOCARBAMOL 750 MG TABLET PO SCH ×6 (02:48→22:28)
[2017-11-11] MEDS: hydrALAzine 20 MG/ML, 1ML IVPush PRN ×2 (02:48→07:16)
[2017-11-11] MEDS: DOXYCYCLINE 100MG TABLET PO SCH ×3 (02:48→20:31)
[2017-11-11 03:27] LABS: CULTURE INDICATED? YES; MICROSCOPIC INDICATED
[2017-11-11] MEDS: ACETAMINOPHEN 325 MG TABLET PO PRN ×2 (07:16→14:21)
[2017-11-11] MEDS: OXYcodone IR 5MG TABLET PO PRN ×4 (07:27→20:33)
[2017-11-11] MEDS: OMEPRAZOLE 20 MG CAPSULE.DR PO SCH ×2 (07:43→20:31)
[2017-11-11] MEDS: LORATADINE 10 MG TABLET PO SCH (07:43)
[2017-11-11] MEDS: AMLODIPINE 5 MG TABLET PO SCH (07:43)
[2017-11-11] MEDS: VENLAFAXINE 75 MG CAP ER PO SCH (07:43)
[2017-11-11] MEDS: SENNA/DOCUSATE TABLET PO SCH ×2 (07:44→09:37)
[2017-11-11] MEDS: LISINOPRIL 20 MG TABLET PO SCH (07:44)
[2017-11-11] MEDS: ONDANSETRON 2MG/ML, 2ML IVPush PRN (07:53)
[2017-11-11] MEDS ORDERED: OMEPRAZOLE 20 MG CAPSULE.DR PO SCH (09:00)
[2017-11-11] MEDS ORDERED: IPRATROPIUM 0.5 MG/2.5 ML INHA HHN SCH (09:00)
[2017-11-11] MEDS: ALBUTEROL/IPRATROPIUM 2.5MG/0.5MG, 3 ML NPPB SCH ×3 (09:30→20:57)
[2017-11-11] MEDS: LABETALOL 200 MG TABLET PO SCH (09:37)
[2017-11-11] MEDS: SUCRALFATE 1 GM TABLET PO SCH ×2 (10:30→20:30)
[2017-11-11] MEDS: FLUTICASONE/VILANTEROL 200-25MCG/INH INH SCH (10:30)
[2017-11-11] MEDS: POLYETHYLENE GLYCOL 17 GM PACKET PO PRN (11:56)
[2017-11-11] MEDS: ATORVASTATIN 40 MG TABLET PO SCH (20:33)
[2017-11-12] MEDS: OXYcodone IR 5MG TABLET PO PRN ×5 (00:53→20:45)
[2017-11-12 01:33] VITALS: BP 159/81
[2017-11-12] MEDS: CEFTRIAXONE PMX 2GM/50ML 50 ML IV SCH (01:46)
[2017-11-12] MEDS: METHOCARBAMOL 750 MG TABLET PO SCH ×5 (04:40→20:45)
[2017-11-12 05:42] LABS: BASOPHILS # (AUTO) 0.06 x10^3/uL (0-0.1); BASOPHILS % (AUTO) 1 % (0-1); EOSINOPHILS # (AUTO) 0.31 x10^3/uL (0-0.4); EOSINOPHILS % (AUTO) 6 % (1-7); LYMPHOCYTES # (AUTO) 0.99 x10^3/uL (1-3.4); LYMPHOCYTES % (AUTO) 19 % (22-44); MD NO; MEAN CORPUSCULAR HEMOGLOBIN 30.9 pg (27.0-34.8); MEAN CORPUSCULAR HGB CONC 33.8 g/dL (32.4-35.8); MEAN CORPUSCULAR VOLUME 91.4 fL (80-100); MEAN PLATELET VOLUME 9.8 fL (7.4-10.4); MONOCYTES # (AUTO) 0.65 x10^3/uL (0.2-0.8); MONOCYTES % (AUTO) 12 % (2-9); NEUTROPHILS # (AUTO) 3.33 x10^3/uL (1.8-6.8); NEUTROPHILS % (AUTO) 62 % (42-75); PLATELET COUNT 196 x10^3/uL (130-400); RED BLOOD COUNT 3.17 x10^6/uL (3.82-5.3); RED CELL DISTRIBUTION WIDTH 13.6 % (9.6-15.2)
[2017-11-12 05:46] LABS: CHLORIDE 108 mmol/L (98-107)
[2017-11-12 06:01] LABS: ALANINE AMINOTRANSFERASE 12 U/L (12-78); ALBUMIN 2.9 g/dL (3.4-5.0); ALKALINE PHOSPHATASE 80 U/L (45-117); ANION GAP 6 mmol/L (5-15); BILIRUBIN,TOTAL 0.7 mg/dL (0.2-1.0); CALCIUM 8.5 mg/dL (8.5-10.1); CHOL/HDL RATIO 1.6; CHOLESTEROL, TOTAL 128 mg/dL (140-239); CREATININE 0.79 mg/dL (0.55-1.02); HDL CHOL % 63 % (28-40); HDL CHOLESTEROL (DIRECT) 80 mg/dL (40-60); LDL CHOLESTEROL,CALCULATED 33 mg/dL (54-169); LDL/HDL RATIO 0.4 (0.5-3.0); TOTAL PROTEIN 6.5 g/dL (6.4-8.2); TRIGLYCERIDES 77 mg/dL (50-200); VLDL CHOLESTEROL 15 mg/dL (0-25)
[2017-11-12] MEDS: ACETAMINOPHEN 325 MG TABLET PO PRN (06:23)
[2017-11-12 07:56] VITALS: BP 144/103
[2017-11-12] MEDS: ONDANSETRON 2MG/ML, 2ML IVPush PRN (07:57)
[2017-11-12] MEDS: FLUTICASONE/VILANTEROL 200-25MCG/INH INH SCH (08:50)
[2017-11-12] MEDS: SENNA/DOCUSATE TABLET PO SCH (08:51)
[2017-11-12] MEDS: LABETALOL 200 MG TABLET PO SCH (08:51)
[2017-11-12] MEDS: LISINOPRIL 20 MG TABLET PO SCH (08:51)
[2017-11-12] MEDS: DOXYCYCLINE 100MG TABLET PO SCH ×2 (08:51→20:45)
[2017-11-12] MEDS: OMEPRAZOLE 20 MG CAPSULE.DR PO SCH ×2 (08:51→20:45)
[2017-11-12] MEDS: LORATADINE 10 MG TABLET PO SCH (08:51)
[2017-11-12] MEDS: POLYETHYLENE GLYCOL 17 GM PACKET PO PRN (08:51)
[2017-11-12] MEDS: VENLAFAXINE 75 MG CAP ER PO SCH (08:52)
[2017-11-12] MEDS: GABAPENTIN 300 MG CAPSULE PO SCH ×3 (08:52→20:45)
[2017-11-12] MEDS: AMLODIPINE 5 MG TABLET PO SCH (08:52)
[2017-11-12] MEDS: SUCRALFATE 1 GM TABLET PO SCH ×2 (08:52→20:45)
[2017-11-12] MEDS: ALBUTEROL/IPRATROPIUM 2.5MG/0.5MG, 3 ML NPPB SCH ×3 (09:35→21:12)
[2017-11-12] MEDS: ACETAMINOPHEN 500 MG TABLET PO SCH ×2 (11:58→20:50)
[2017-11-12] MEDS ORDERED: GADOBUTROL 10 MMOL/10 ML PFS ONE (12:36)
[2017-11-12 13:06] VITALS: BP 132/77
[2017-11-12] MEDS: SODIUM CHLORIDE 0.9% 1,000 ML IV SCH (15:00)
[2017-11-12 20:16] VITALS: BP 139/78
[2017-11-12] MEDS: ATORVASTATIN 40 MG TABLET PO SCH (20:45)
[2017-11-13] MEDS: METHOCARBAMOL 750 MG TABLET PO SCH ×3 (00:14→08:58)
[2017-11-13] MEDS: OXYcodone IR 5MG TABLET PO PRN ×3 (00:14→08:59)
[2017-11-13] MEDS: CEFTRIAXONE PMX 2GM/50ML 50 ML IV SCH (03:14)
[2017-11-13 03:35] VITALS: BP 158/82
[2017-11-13] MEDS ORDERED: POTASSIUM CHLORIDE 40 MEQ in SODIUM CHLORIDE 0.9% 500 ML IV ONE (06:00)
[2017-11-13 07:22] VITALS: BP 151/84
[2017-11-13] MEDS: LORATADINE 10 MG TABLET PO SCH (08:56)
[2017-11-13] MEDS: AMLODIPINE 5 MG TABLET PO SCH (08:57)
[2017-11-13] MEDS: ACETAMINOPHEN 500 MG TABLET PO SCH (08:57)
[2017-11-13] MEDS: SENNA/DOCUSATE TABLET PO SCH (08:57)
[2017-11-13] MEDS: OMEPRAZOLE 20 MG CAPSULE.DR PO SCH (08:57)
[2017-11-13] MEDS: LISINOPRIL 20 MG TABLET PO SCH (08:57)
[2017-11-13] MEDS: SUCRALFATE 1 GM TABLET PO SCH (08:58)
[2017-11-13] MEDS: VENLAFAXINE 75 MG CAP ER PO SCH (08:58)
[2017-11-13] MEDS: DOXYCYCLINE 100MG TABLET PO SCH (08:58)
[2017-11-13] MEDS: GABAPENTIN 300 MG CAPSULE PO SCH (08:58)
[2017-11-13] MEDS: FLUTICASONE/VILANTEROL 200-25MCG/INH INH SCH (08:59)
[2017-11-13] MEDS ORDERED: DOXY100T10 PO (09:30)
[2017-11-13] MEDS ORDERED: CEFD300C37 PO (09:30)
[2017-11-13] MEDS ORDERED: GABA300C10 PO (09:30)
[2017-11-13] MEDS ORDERED: SENN1TAB7 PO (09:30)
[2017-11-13] MEDS: ALBUTEROL/IPRATROPIUM 2.5MG/0.5MG, 3 ML NPPB SCH (10:50)
== END 2017-11-13 11:31 | disposition home health service (06) | DRG 190 ==
LOC: ED 23:59 → EDIP 11-11 01:28 → 4NOR 11-11 02:23 → DCLOUNGE 11-13 11:21
PROVIDERS: ADMIT Internal Medicine; ATTEND Internal Medicine
DX: J44.0 Chronic obstructive pulmonary disease with (acute) lower respiratory infection (principal); J15.9 Unspecified bacterial pneumonia; J96.11 Chronic respiratory failure with hypoxia; I11.0 Hypertensive heart disease with heart failure; E66.01 Morbid (severe) obesity due to excess calories; I50.9 Heart failure, unspecified; D64.9 Anemia, unspecified; E11.9 Type 2 diabetes mellitus without complications; E87.6 Hypokalemia; Z88.8 Allergy status to other drugs, medicaments and biological substances; F10.10 Alcohol abuse, uncomplicated; F12.90 Cannabis use, unspecified, uncomplicated; F17.210 Nicotine dependence, cigarettes, uncomplicated; F32.9 Major depressive disorder, single episode, unspecified; I25.2 Old myocardial infarction; K21.9 Gastro-esophageal reflux disease without esophagitis; M54.40 Lumbago with sciatica, unspecified side; M48.061 Spinal stenosis, lumbar region without neurogenic claudication; Z86.73 Personal history of transient ischemic attack (TIA), and cerebral infarction without residual deficits; Z95.5 Presence of coronary angioplasty implant and graft; Z98.2 Presence of cerebrospinal fluid drainage device
CPT/HCPCS: 36415; 71045; 72156; 78582; 80048; 80053; 80061; 81001; 82040; 82962; 83605; 83735; 84145; 84439; 84443; 85025; 87040; 87086; 87106; 93005; 94640; 96374; 96375; A9585; J0696; J2405; J7620; A9540; A9558; C9898; J0360; J0780; J1200; J2765; J7030

== ENCOUNTER 2017-11-21 12:17 | Emergency (ER) | payer MEDICARE, MEDICAID ==
[~2017-11-21] VITALS: Ht 157.5 cm; Wt 80.0 kg
[~2017-11-21 12:17] MED LIST changes: +CEFD300C37 PO; +DOXY100T10 PO
[2017-11-21] MEDS ORDERED: MORPHINE SULFATE 4 MG/ML, 1ML ONE (13:51)
[2017-11-21] MEDS ORDERED: ONDANSETRON 2MG/ML, 2ML ONE (13:51)
[2017-11-21] MEDS ORDERED: FAMOTIDINE 20 MG/2 ML ONE (13:51)
[2017-11-21] MEDS ORDERED: ONDANSETRON 2MG/ML, 2ML IVPush ONE (14:00)
[2017-11-21] MEDS ORDERED: FAMOTIDINE 20 MG/2 ML IVP ONE (14:00)
[2017-11-21] MEDS ORDERED: MORPHINE SULFATE 4 MG/ML, 1ML IVPush PRN (14:00)
[2017-11-21] MEDS ORDERED: SODIUM CHLORIDE FLUSH 10ML SYR IVF ONE (14:00)
[2017-11-21] MEDS ORDERED: SODIUM CHLORIDE 0.9% 1,000ML IVBOLUS ONE (14:00)
[2017-11-21 15:39] VITALS: BP 171/99
== END 2017-11-21 16:23 | disposition home or self-care (01) ==
LOC: ED 15:10
DX: F11.23 Opioid dependence with withdrawal (principal); J44.9 Chronic obstructive pulmonary disease, unspecified; K21.9 Gastro-esophageal reflux disease without esophagitis; E11.9 Type 2 diabetes mellitus without complications; I11.0 Hypertensive heart disease with heart failure; I50.9 Heart failure, unspecified; F17.200 Nicotine dependence, unspecified, uncomplicated; E87.6 Hypokalemia
CPT/HCPCS: 96374; 96375; 99284; J2405; S0028

== ENCOUNTER → 2018-01-01 | Outpatient (CLI) | payer MEDICARE, MEDICAID | END | disposition home or self-care (01) | LOC: CFH 15:24 | PROVIDERS: ATTEND Neurological Surgery | DX: M51.36 Other intervertebral disc degeneration, lumbar region (principal); Z98.1 Arthrodesis status | CPT/HCPCS: 72100 ==

== ENCOUNTER 2018-03-03 17:43 | Emergency (ER) | payer MEDICARE, MEDICAID ==
[~2018-03-03] VITALS: Ht 157.5 cm; Wt 72.7 kg
[~2018-03-03 17:43] MED LIST changes: -METF500T4 PO; +METF500T5 PO
[2018-03-03] MEDS ORDERED: OXYcodone/APAP 5/325MG TABLET PO ONE (18:30)
[2018-03-03] MEDS ORDERED: OXYcodone/APAP 5/325MG TABLET ONE (19:19)
[2018-03-03 20:34] VITALS: BP 145/82
== END 2018-03-03 21:24 | disposition home or self-care (01) ==
LOC: ED 20:54
DX: S06.0X0A Concussion without loss of consciousness, initial encounter (principal); S00.03XA Contusion of scalp, initial encounter; E04.1 Nontoxic single thyroid nodule; K21.9 Gastro-esophageal reflux disease without esophagitis; I10 Essential (primary) hypertension; E11.9 Type 2 diabetes mellitus without complications; I11.0 Hypertensive heart disease with heart failure; I50.9 Heart failure, unspecified; I25.2 Old myocardial infarction; F32.9 Major depressive disorder, single episode, unspecified; W01.0XXA Fall on same level from slipping, tripping and stumbling without subsequent striking against object, initial encounter; Y93.E1 Activity, personal bathing and showering; Y92.099 Unspecified place in other non-institutional residence as the place of occurrence of the external cause; Y99.8 Other external cause status; Y92.009 Unspecified place in unspecified non-institutional (private) residence as the place of occurrence of the external cause
CPT/HCPCS: 70450; 72110; 72125; 99284

== ENCOUNTER 2018-06-10 14:58 | Emergency (ER) | payer MEDICARE, MEDICAID ==
[~2018-06-10] VITALS: Ht 160 cm; Wt 88.4 kg
[~2018-06-10 14:58] MED LIST changes: -AMLO10TA2 PO; +AMLO10TA6 PO; -AMLO5TAB2 PO; +AMLO5TAB7 PO; -LABE200T3 PO; +LABE200T6 PO; +METF500T17 PO; -METF500T5 PO; -POTA20PA PO; +POTA20PA31 PO; -SENN1TAB7 PO; +SENN1TAB8 PO
[2018-06-10] MEDS ORDERED: OXYcodone IR 5MG TABLET PO ONE (16:00)
[2018-06-10] MEDS ORDERED: OXYcodone IR 5MG TABLET ONE (16:17)
[2018-06-10 16:25] VITALS: BP 184/93
== END 2018-06-10 16:27 | disposition home or self-care (01) ==
LOC: ED 16:05
DX: M79.662 Pain in left lower leg (principal); I11.0 Hypertensive heart disease with heart failure; G89.29 Other chronic pain; I25.2 Old myocardial infarction; E11.9 Type 2 diabetes mellitus without complications; I50.9 Heart failure, unspecified; J44.9 Chronic obstructive pulmonary disease, unspecified; F32.9 Major depressive disorder, single episode, unspecified; K21.9 Gastro-esophageal reflux disease without esophagitis; Z95.5 Presence of coronary angioplasty implant and graft
CPT/HCPCS: 93005; 99284

== ENCOUNTER → 2018-06-26 | Outpatient (CLI) | payer MEDICARE, MEDICAID | END | disposition home or self-care (01) | LOC: CFH 12:48 | PROVIDERS: ATTEND Neurological Surgery | DX: M43.27 Fusion of spine, lumbosacral region (principal) | CPT/HCPCS: 72100 ==

== ENCOUNTER → 2018-07-02 | Outpatient (CLI) | payer MEDICARE, MEDICAID ==
[~2018-07-02] MED LIST changes: +AMLO-150 PO; -AMLO5TAB7 PO; +LIDOCAINE-MPF 1%, 5ML ONE
== END | disposition home or self-care (01) ==
LOC: RAD 09:15
PROVIDERS: ATTEND Genetic Counselor, MS
DX: E04.1 Nontoxic single thyroid nodule (principal)
CPT/HCPCS: 10022; 76942; 88173

== ENCOUNTER 2018-09-01 06:42 | Day surgery (SDC) | payer MEDICARE, MEDICAID ==
[~2018-09-01] VITALS: Ht 158.8 cm; Wt 83.8 kg
[~2018-09-01 06:42] MED LIST changes: -LIDOCAINE-MPF 1%, 5ML ONE
[2018-09-01 07:22] VITALS: BP 135/89
[2018-09-01] MEDS ORDERED: LACTATED RINGERS 1,000 ML IV SCH (07:24)
[2018-09-01] MEDS ORDERED: SCOPOLAMINE PATCH, 1.5MG PATCH.TD72 TD STA (07:25)
[2018-09-01] MEDS ORDERED: ACETAMINOPHEN 500 MG TABLET PO STA (07:25)
[2018-09-01] MEDS ORDERED: FAMOTIDINE 20 MG TABLET PO STA (07:25)
[2018-09-01] MEDS ORDERED: ALBU8.5H8 INH (07:34)
[2018-09-01] MEDS ORDERED: FLUT1AER IH (07:34)
[2018-09-01] MEDS ORDERED: CYCL5TAB PO (07:34)
[2018-09-01] MEDS ORDERED: GABA300C10 PO (07:34)
[2018-09-01] MEDS ORDERED: ASPI-650 PO (07:34)
[2018-09-01] MEDS ORDERED: OMEP40CA6 PO (07:34)
[2018-09-01] MEDS ORDERED: OXYC-432 PO (07:34)
[2018-09-01] MEDS ORDERED: FENTANYL PF 250 MCG/5ML ONE (07:44)
[2018-09-01] MEDS ORDERED: MIDAZOLAM 1 MG/ML, 2ML ONE (07:44)
[2018-09-01 08:10] LABS: ALANINE AMINOTRANSFERASE 16 U/L (12-78); ALBUMIN 3.5 g/dL (3.4-5.0); ANION GAP 8 mmol/L (5-15); CALCIUM 8.4 mg/dL (8.5-10.1); CHLORIDE 106 mmol/L (98-107); CREATININE 0.91 mg/dL (0.55-1.02)
[2018-09-01] MEDS ORDERED: FLUT1BLS INH (08:12)
[2018-09-01] MEDS ORDERED: ALPR0.254 PO (08:12)
[2018-09-01 08:13] LABS: ALKALINE PHOSPHATASE 78 U/L (45-117); BILIRUBIN,TOTAL 0.7 mg/dL (0.2-1.0); TOTAL PROTEIN 6.7 g/dL (6.4-8.2)
[2018-09-01] MEDS ORDERED: LIDOCAINE 2% 100MG/5ML SYRINGE ONE (09:08)
[2018-09-01] MEDS ORDERED: HYDROmorphone 2 MG/ML, 1ML IVPush PRN (09:30)
[2018-09-01] MEDS ORDERED: LABETALOL 5MG/ML, 20ML IV PRN (09:30)
[2018-09-01] MEDS ORDERED: hydrALAzine 20 MG/ML, 1ML IV PRN (09:30)
[2018-09-01] MEDS ORDERED: MEPERIDINE/PF 25MG/0.5ML IVPush PRN (09:30)
[2018-09-01] MEDS ORDERED: ALBUTEROL/IPRATROPIUM 2.5MG/0.5MG, 3 ML NPPB PRN (09:30)
[2018-09-01] MEDS ORDERED: PROMETHAZINE 25 MG/ML, 1ML IV PRN (09:30)
[2018-09-01] MEDS ORDERED: ONDANSETRON ODT 8 MG PO PRN (09:30)
[2018-09-01] MEDS ORDERED: DIAZEPAM 5 MG/ML, 2ML IVPush PRN (09:30)
[2018-09-01] MEDS ORDERED: ONDANSETRON 2MG/ML, 2ML IV PRN (09:30)
[2018-09-01] MEDS ORDERED: ROCURONIUM 10MG/ML,5ML ONE (09:56)
[2018-09-01] MEDS ORDERED: CEFAZOLIN 1,000 MG ONE (09:56)
[2018-09-01] MEDS ORDERED: SUCCINYLCHOLINE 20 MG/ML, 10ML ONE (09:56)
[2018-09-01] MEDS ORDERED: NEOSTIGMINE 1 MG/ML, 10ML ONE (09:56)
[2018-09-01] MEDS ORDERED: DEXAMETHASONE 4 MG/ML, 1ML ONE (09:56)
[2018-09-01] MEDS ORDERED: PROPOFOL 10 MG/ML, 20ML ONE (09:56)
[2018-09-01] MEDS ORDERED: GLYCOPYRROLATE 0.2MG/1ML, 5ML ONE (09:56)
[2018-09-01] MEDS ORDERED: ONDANSETRON 2MG/ML, 2ML ONE (09:56)
[2018-09-01] MEDS: OXYcodone 5 MG/5 ML ORAL.SOL UDC PO PRN ×2 (10:30→14:26)
[2018-09-01] MEDS: FENTANYL PF 100 MCG/2ML IV PRN ×4 (10:30→11:05)
[2018-09-01] MEDS ORDERED: FENTANYL PF 100 MCG/2ML ONE (10:30)
[2018-09-01] MEDS ORDERED: OXYcodone 5 MG/5 ML ORAL.SOL UDC ONE (10:31)
[2018-09-01] MEDS ORDERED: ALBUTEROL/IPRATROPIUM 2.5MG/0.5MG, 3 ML ONE (11:18)
[2018-09-01] MEDS ORDERED: morphine SULFATE 10 MG/ML, 1ML IVPush PRN (14:00)
[2018-09-01] MEDS ORDERED: OXYcodone 5 MG/5 ML ORAL.SOL UDC PO PRN (14:30)
== END 2018-09-01 14:50 | disposition home or self-care (01) ==
LOC: OUT 06:42
PROVIDERS: ATTEND Surgery
DX: E04.1 Nontoxic single thyroid nodule (principal); E11.9 Type 2 diabetes mellitus without complications; I25.2 Old myocardial infarction; E78.00 Pure hypercholesterolemia, unspecified; I10 Essential (primary) hypertension; F17.210 Nicotine dependence, cigarettes, uncomplicated; Z86.73 Personal history of transient ischemic attack (TIA), and cerebral infarction without residual deficits; Z87.39 Personal history of other diseases of the musculoskeletal system and connective tissue; Z72.89 Other problems related to lifestyle; Z98.890 Other specified postprocedural states; Z79.899 Other long term (current) drug therapy
CPT/HCPCS: 36415; 60220; 80053; 82962; 88307; 93005; 94640; C1760; J0330; J0690; J2250; J2270; J2405; J2704; J2710; J3010; J3360; J3490; J7120; J7620; J1100

== ENCOUNTER 2018-09-10 20:00 | Emergency (ER) | payer MEDICARE, MEDICAID ==
[~2018-09-10] VITALS: Ht 157.5 cm; Wt 84.1 kg
[~2018-09-10 20:00] MED LIST changes: +ALBU8.5H8 INH; +ALPR0.254 PO; -AMLO10TA6 PO; +AMLO10TA8 PO; +CYCL5TAB PO; +FLUT1AER IH; +OXYC-432 PO
[2018-09-10 20:11] VITALS: BP 161/89
[2018-09-10] MEDS ORDERED: HYDROmorphone 2 MG/ML, 1ML ONE (21:28)
[2018-09-10] MEDS ORDERED: KETOROLAC 30 MG/1 ML ONE (21:28)
[2018-09-10] MEDS ORDERED: HYDROmorphone 1 MG/ML, 1ML IM ONE (21:30)
[2018-09-10] MEDS ORDERED: KETOROLAC 30 MG/1 ML IM ONE (21:30)
== END 2018-09-10 22:30 | disposition home or self-care (01) ==
LOC: ED 22:24
DX: M54.32 Sciatica, left side (principal); I25.2 Old myocardial infarction; K21.9 Gastro-esophageal reflux disease without esophagitis; E11.9 Type 2 diabetes mellitus without complications; J44.9 Chronic obstructive pulmonary disease, unspecified
CPT/HCPCS: 72110; 93971; 96372; 99284; J1170; J1885

== ENCOUNTER 2019-03-30 16:05 | Inpatient (IN) | payer MEDICARE, MEDICAID ==
[~2019-03-30] VITALS: Ht 157.5 cm; Wt 82.8 kg
[2019-04-07 13:40] VITALS: BP 146/84
== END 2019-04-07 17:58 | disposition home health service (06) | DRG 870 ==
LOC: ED 17:33 → EDIP 18:37 → 5SO 19:41 → CCU 03-31 11:02 → 4EST 04-06 14:40
PROVIDERS: ADMIT Internal Medicine; ATTEND Internal Medicine
PROC: 5A1955Z Respiratory Ventilation, Greater than 96 Consecutive Hours (ICD-10-PCS; principal; 2019-03-31)
PROC: 0BH18EZ Insertion of Endotracheal Airway into Trachea, Via Natural or Artificial Opening Endoscopic (ICD-10-PCS; 2019-03-31)
PROC: 5A09357 Assistance with Respiratory Ventilation, Less than 24 Consecutive Hours, Continuous Positive Airway Pressure (ICD-10-PCS; 2019-03-31)
PROC: 02HV33Z Insertion of Infusion Device into Superior Vena Cava, Percutaneous Approach (ICD-10-PCS; 2019-03-31)
PROC: B548ZZA Ultrasonography of Superior Vena Cava, Guidance (ICD-10-PCS; 2019-03-31)
DX: A41.9 Sepsis, unspecified organism (principal); J96.21 Acute and chronic respiratory failure with hypoxia; G93.6 Cerebral edema; I21.4 Non-ST elevation (NSTEMI) myocardial infarction; J15.0 Pneumonia due to Klebsiella pneumoniae; I50.1 Left ventricular failure, unspecified; J98.11 Atelectasis; T78.2XXA Anaphylactic shock, unspecified, initial encounter; Z99.11 Dependence on respirator [ventilator] status; T78.3XXA Angioneurotic edema, initial encounter; D64.9 Anemia, unspecified; D72.819 Decreased white blood cell count, unspecified; E11.9 Type 2 diabetes mellitus without complications; E87.6 Hypokalemia; F12.90 Cannabis use, unspecified, uncomplicated; F41.1 Generalized anxiety disorder; G89.29 Other chronic pain; I25.10 Atherosclerotic heart disease of native coronary artery without angina pectoris; J43.9 Emphysema, unspecified; K21.9 Gastro-esophageal reflux disease without esophagitis; T46.4X5A Adverse effect of angiotensin-converting-enzyme inhibitors, initial encounter; T50.8X5A Adverse effect of diagnostic agents, initial encounter; I10 Essential (primary) hypertension; Z80.0 Family history of malignant neoplasm of digestive organs; Z80.1 Family history of malignant neoplasm of trachea, bronchus and lung; Z87.891 Personal history of nicotine dependence; Z88.8 Allergy status to other drugs, medicaments and biological substances; Z91.041 Radiographic dye allergy status; Z95.5 Presence of coronary angioplasty implant and graft; Z98.2 Presence of cerebrospinal fluid drainage device; Z98.84 Bariatric surgery status; Z99.81 Dependence on supplemental oxygen
CPT/HCPCS: 36415; 36573; 36600; 71045; 74018; 78582; 80048; 80053; 81003; 82728; 82803; 83036; 83540; 83550; 83605; 83735; 83880; 84100; 84145; 84478; 84484; 85025; 85379; 86803; 87040; 87070; 87077; 87081; 87186; 87205; 87340; 87806; 92950; 93005; 93308; 93321; 93325; 94002; 94003; 94640; 94644; 94660; 99285; C8929; G0378; J0696; J1100; J1170; J1650; J1940; J2250; J2405; J2543; J2780; J3010; J7620; J7626; Q9957; A9540; A9558; C1751; G0475; J0330; J1200; J2060; J3475; J3490; J7030